=== PATIENT | female | born 1945 | race Asian ===

== ENCOUNTER 2017-11-05 07:47 | Day surgery (SDC) | payer MEDICARE, OTHER ==
[2017-11-05] MEDS ORDERED: LIDOCAINE 100 MG SYRINGE (09:27)
[2017-11-05] MEDS ORDERED: PROPOFOL 40 ML (09:27)
== END 2017-11-05 13:46 | disposition home or self-care (01) ==
LOC: GIL 07:47
DX: K92.1 Melena (principal); K64.8 Other hemorrhoids; D12.5 Benign neoplasm of sigmoid colon; J45.909 Unspecified asthma, uncomplicated
CPT/HCPCS: 45380; 88305